=== PATIENT | female | born 1990 | race African-American/Black ===

== ENCOUNTER 2019-05-03 10:52 | Emergency (ER) | payer OTHER ==
[~2019-05-03] VITALS: Ht 152.4 cm; Wt 53.5 kg
--- NOTE | 2019-05-03 11:05 | NUR ---
PT A/OX4, PRESENTS TO THE ER C/O VAGINAL BLEEDING X 5 DAYS. PT REPORTS SHE IS APPROXIMATELY 5-6 WEEKS AND HAS BEEN NOTICING "SPOTTING" FOR APPROXIMATELY 5 DAYS. PT IS . PT IS SCHEDULED FOR A CHECKUP TOMORROW. SECONDARY COMPLAINT: ABD CRAMPING. ABD CRAMPING PAIN IS NON-PROVOKING, CRAMPING IN QUALITY, RADIATING, 7/10, CONSTANT. VS WNL. PT DENIES C/P, SOB, N/V/D, DIZZINESS, HEADACHE.
--- NOTE | 2019-05-03 11:06 | NUR ---
AICHA PRINCE AT BEDSIDE FOR MSE.
--- NOTE | 2019-05-03 11:12 | NUR ---
SURFACE BOSS AT BEDSIDE.
--- NOTE | 2019-05-03 11:30 | NUR ---
US TECH AT BEDSIDE W/ JOSE Solorzano RN, FEMALE CHAPPERONE.
[2019-05-03 11:32] LABS: BASOPHILS % (AUTO) 0.3 % (0.0-2.0); EOSINOPHILS % (AUTO) 0.7 % (0.0-7.0); HEMOGLOBIN 12.5 g/dL (10.9-14.3); LYMPHOCYTES # (AUTO) 1.3 K/uL (20.0-40.0); MEAN CORPUSCULAR HEMOGLOBIN 31.9 uug (24.7-32.8); MEAN CORPUSCULAR HGB CONC 34 g/dL (32.3-35.6); MEAN CORPUSCULAR VOLUME 94.5 fL (75.5-95.3); MONOCYTES # (AUTO) 0.6 K/uL (2.0-10.0); MONOCYTES % (AUTO) 9.6 % (0.0-11.0); NEUTROPHILS # (AUTO) 4.2 K/uL (1.8-8.9); NEUTROPHILS % (AUTO) 68.4 % (38.5-71.5); PLATELET COUNT (AUTO) 198 K/uL (179-408); RED BLOOD CELL COUNT(AUTO) 3.92 MIL/uL (3.63-4.92); WHITE BLOOD COUNT (AUTO) 6.1 K/uL (3.8-11.8)
--- NOTE | 2019-05-03 12:10 | NUR ---
RECEIVED CALL FROM ELIOT HESS, NOTIFIED PT'S BLOOD TYPE IS O+ AND NOT A CANDIDATE FOR RHOGAM. AICHA PRINCE NOTIFIED.
--- NOTE | 2019-05-03 12:18 | NUR ---
AICHA PRINCE AT BEDSIDE FOR PT UPDATE.
--- NOTE | 2019-05-03 12:25 | NUR ---
Patient discharged to home in stable conditon. Written and verbal after care instructions given. Patient verbalizes understanding of instructions. ALL BELONGINGS W/ PT. PT SELF-AMBULATED W/O DIFFICULTY.
[2019-05-03 12:27] VITALS: BP 106/53
== END 2019-05-03 12:28 | disposition home or self-care (01) ==
LOC: ER 10:52
DX: O20.0 Threatened abortion (principal); Z3A.01 Less than 8 weeks gestation of pregnancy
CPT/HCPCS: 36415; 76856; 85025; 86850; 86900; 86901; A4663

== ENCOUNTER 2019-05-07 10:47 | Emergency (ER) | payer OTHER ==
[~2019-05-07] VITALS: Ht 152.4 cm; Wt 49.9 kg
[2019-05-07 12:00] LABS: BASOPHILS % (AUTO) 0.3 % (0.0-2.0); EOSINOPHILS % (AUTO) 0.7 % (0.0-7.0); HEMOGLOBIN 11.4 g/dL (10.9-14.3); LYMPHOCYTES # (AUTO) 1.3 K/uL (20.0-40.0); LYMPHOCYTES % (AUTO) 24.6 % (20.5-51.5); MEAN CORPUSCULAR HEMOGLOBIN 31.8 uug (24.7-32.8); MEAN CORPUSCULAR HGB CONC 34 g/dL (32.3-35.6); MEAN CORPUSCULAR VOLUME 94.5 fL (75.5-95.3); MONOCYTES # (AUTO) 0.5 K/uL (2.0-10.0); MONOCYTES % (AUTO) 9.7 % (0.0-11.0); NEUTROPHILS # (AUTO) 3.4 K/uL (1.8-8.9); NEUTROPHILS % (AUTO) 64.7 % (38.5-71.5); PLATELET COUNT (AUTO) 179 K/uL (179-408); WHITE BLOOD COUNT (AUTO) 5.2 K/uL (3.8-11.8)
[2019-05-07 12:03] LABS: CARBON DIOXIDE 27 mmol/L (21-32); CHLORIDE 102 mmol/L (98-107); CREATININE 0.5 mg/dL (0.6-1.3); GLUCOSE 83 mg/dL (74-106); POTASSIUM 3.8 mmol/L (3.5-5.1); UREA NITROGEN, BLOOD 7 mg/dL (7-18)
--- NOTE | 2019-05-07 12:19 | NUR ---
chapperone us being done. pt tolerated well. pt so at bedside.
--- NOTE | 2019-05-07 13:36 | NUR ---
Patient discharged to home in stable conditon. Written and verbal after care instructions given. Patient verbalizes understanding of instructions.pt with so. copies of all the studies provided for follow up
[2019-05-07 13:37] VITALS: BP 111/67
== END 2019-05-07 13:40 | disposition home or self-care (01) ==
LOC: ER 10:47
DX: O20.0 Threatened abortion (principal); Z3A.01 Less than 8 weeks gestation of pregnancy
CPT/HCPCS: 36415; 76856; 85025; 85730; A4663